=== PATIENT | male | born 1995 | race Caucasian/White ===

== ENCOUNTER 2017-08-01 12:42 | Inpatient (IN) | payer OTHER ==
[2017-08-01] MEDS ORDERED: NS 1,000 ML IV ONE ×2 (14:27)
--- NOTE | 2017-08-01 14:32 | EDPHY ---
H & P Stated Complaint: bilateral low back pain, sent by dr noble at [facility] Time Seen by Provider: 08/01/17 14:21 HPI/ROS: CHIEF COMPLAINT: Rhabdo HISTORY OF PRESENT ILLNESS: The patient is a 21-year-old man who comes to the emergency department referred by his primary Dr. Noble. The patient has been working out heavily lifting weights over the last couple of weeks he has also been using supplementation of creatine. He states that on Saturday he was nauseous and vomiting and complaining of low back pain. He began to feel better on Saturday but still had slight back pain on Saturday. He went to see his doctor who ordered lab work which was done yesterday. He was positive for hematuria on dip. He was sent for a noncontrast CT scan of his abdomen yesterday that was negative. Today his creatinine came back at 6 and he was referred to the emergency department. He states that overall he is feeling much better. The back pain is subsiding any is no longer nauseous or vomiting. No fever. No body aches. REVIEW OF SYSTEMS: Constitutional: denies: chills, fever, recent illness, recent injury EENTM: denies: blurred vision, double vision, nose congestion Respiratory: denies: cough, shortness of breath Cardiac: denies: chest pain, irregular heart rate, lightheadedness, palpitations Gastrointestinal/Abdominal: denies: abdominal pain, diarrhea, nausea, vomiting, blood streaked stools Genitourinary: denies: dysuria, frequency, hematuria, pain Musculoskeletal: See HPI Skin: denies: lesions, rash, jaundice, bruising Neurological: denies: headache, numbness, paresthesia, tingling, dizziness, weakness Hematologic/Lymphatic: denies: blood clots, easy bleeding, easy bruising Immunologic/allergic: denies: HIV/AIDS, transplant EXAM: GENERAL: Well-appearing, well-nourished and in no acute distress. HEAD: Atraumatic, normocephalic. EYES: Pupils equal round and reactive to light, extraocular movements intact, sclera anicteric, conjunctiva are normal. ENT: TMs normal, nares patent, oropharynx clear without exudates. Moist mucous membranes. NECK: Normal range of motion, supple without lymphadenopathy or JVD. LUNGS: Breath sounds clear to auscultation bilaterally and equal. No wheezes rales or rhonchi. HEART: Regular rate and rhythm without murmurs, rubs or gallops. ABDOMEN: Soft, nontender, normoactive bowel sounds. No guarding, no rebound. No masses appreciated. BACK: No CVA tenderness, no spinal tenderness, step-offs or deformities EXTREMITIES: Normal range of motion, no pitting or edema. No clubbing or cyanosis. NEUROLOGICAL: Cranial nerves II through XII grossly intact. Normal speech, normal gait. 5/5 strength, normal movement in all extremities, normal sensation PSYCH: Normal mood, normal affect. SKIN: Warm, dry, normal turgor, no visible rashes or lesions. Source: Patient Exam Limitations: No limitations - Personal History Current Tetanus Diphtheria and Acellular Pertussis (TDAP): Yes - Medical/Surgical History Hx Asthma: No Hx Chronic Respiratory Disease: No Hx Diabetes: No Hx Cardiac Disease: No Hx Renal Disease: No Hx Cirrhosis: No Hx Alcoholism: No Hx HIV/AIDS: No Hx Splenectomy or Spleen Trauma: No Other PMH: DENIES - Family History Significant Family History: No pertinent family hx - Social History Smoking Status: Never smoked Alcohol Use: Sober Drug Use: None Constitutional: Initial Vital Signs Temperature (C) 36.4 C 08/01/17 12:50 Heart Rate 74 08/01/17 12:50 Respiratory Rate 16 08/01/17 12:50 Blood Pressure 156/104 H 08/01/17 12:50 O2 Sat (%) 96 08/01/17 12:50 O2 Delivery Mode Room Air Allergies/Adverse Reactions: No Known Allergies Allergy (Unverified 09/19/15 14:55) Home Medications: Medication Instructions Recorded Herbals/Supplements -Info Only 1 ea PO DAILY 08/01/17 Ibuprofen [Advil] 400 mg PO BID PRN 08/01/17 Medical Decision Making ED Course/Re-evaluation: 3:00 p.m. I discussed the case Dr. Darion Vasquez who will admit to the medical service and continue hydration. CK pending. Patient is well appearing. He understands and agrees with this plan. Differential Diagnosis: Partial list of the Differential diagnosis considered include but were not limited to; analysis, renal insufficiency and although unlikely based on the history and physical exam, I also considered dehydration, gastritis, kidney stone, urinary tract infection. - Data Points Laboratory Results: Laboratory Results 08/01/17 14:20 08/01/17 14:20 08/01/17 08/01/17 08/01/17 14:20 14:20 14:20 WBC RBC Hgb Hct 43.7 % % (40.0-51.0) MCV MCH MCHC RDW Plt Count MPV Neut % (Auto) Lymph % (Auto) [place] % (Auto) Eos % (Auto) Baso % (Auto) Nucleat RBC Rel Count Absolute Neuts (auto) Absolute Lymphs (auto) Absolute Monos (auto) Absolute Eos (auto) Absolute Basos (auto) Absolute Nucleated RBC Immature Gran % Immature Gran # ESR Pending PT INR APTT Sodium Potassium Chloride Carbon Dioxide Anion Gap BUN Creatinine Estimated GFR Glucose Calcium Total Bilirubin Conjugated Bilirubin Unconjugated Bilirubin AST ALT Alkaline Phosphatase Creatine Kinase 44 IU/L IU/L (0-224) CK-MB (CK-2) Fraction Pending C-Reactive Protein Pending Total Protein Albumin PTH Intact Pending Urine Color Urine Appearance Urine pH Ur Specific [place] Urine Protein Urine Ketones Urine Blood Urine Nitrate Urine Bilirubin Urine Urobilinogen Ur Leukocyte Esterase Urine RBC Urine WBC Ur Epithelial Cells Urine Bacteria Urine Mucus Urine Glucose 08/01/17 08/01/17 08/01/17 14:20 14:20 14:20 WBC RBC Hgb Hct MCV MCH MCHC RDW Plt Count MPV Neut % (Auto) Lymph % (Auto) [place] % (Auto) Eos % (Auto) Baso % (Auto) Nucleat RBC Rel Count Absolute Neuts (auto) Absolute Lymphs (auto) Absolute Monos (auto) Absolute Eos (auto) Absolute Basos (auto) Absolute Nucleated RBC Immature Gran % Immature Gran # ESR PT 13.9 SEC SEC (12.0-15.0) INR 1.08 (0.83-1.16) APTT 30.3 SEC SEC (23.0-38.0) Sodium 139 mEq/L mEq/L (134-144) Potassium 3.9 mEq/L mEq/L (3.5-5.2) Chloride 98 mEq/L mEq/L (97-110) Carbon Dioxide 26 mEq/l mEq/l (22-31) Anion Gap 15 mEq/L mEq/L (8-16) BUN 32 mg/dL H mg/dL (7-23) Creatinine 5.7 mg/dL H mg/dL (0.7-1.3) Estimated GFR 13 Glucose 99 mg/dL mg/dL (70-100) Calcium 9.6 mg/dL mg/dL (8.5-10.4) Total Bilirubin 0.8 mg/dL mg/dL (0.1-1.4) Conjugated Bilirubin 0.3 mg/dL mg/dL (0.0-0.5) Unconjugated Bilirubin 0.5 mg/dL mg/dL (0.0-1.1) AST 23 IU/L IU/L (17-59) ALT 29 IU/L IU/L (21-72) Alkaline Phosphatase 78 IU/L IU/L (38-126) Creatine Kinase CK-MB (CK-2) Fraction C-Reactive Protein Total Protein 7.4 g/dL g/dL (6.3-8.2) Albumin 4.3 g/dL g/dL (3.5-5.0) PTH Intact Urine Color PALE YELLOW Urine Appearance CLEAR Urine pH 7.0 (5.0-7.5) Ur Specific [place] 1.005 (1.002-1.030) Urine Protein NEGATIVE (NEGATIVE) Urine Ketones NEGATIVE (NEGATIVE) Urine Blood NEGATIVE (NEGATIVE) Urine Nitrate NEGATIVE (NEGATIVE) Urine Bilirubin NEGATIVE (NEGATIVE) Urine Urobilinogen NEGATIVE EU EU (0.2-1.0) Ur Leukocyte Esterase 3+ H (NEGATIVE) Urine RBC NONE SEEN /hpf /hpf (0-3) Urine WBC 1-3 /hpf /hpf (0-3) Ur Epithelial Cells Not Reported Urine Bacteria TRACE /hpf H /hpf (NONE SEEN) Urine Mucus TRACE /lpf /lpf (NONE-1+) Urine Glucose NEGATIVE (NEGATIVE) 08/01/17 14:20 WBC 12.96 10^3/uL H 10^3/uL (3.80-9.50) RBC 4.88 10^6/uL 10^6/uL (4.40-6.38) Hgb 15.9 g/dL g/dL (13.7-17.5) Hct 43.3 % % (40.0-51.0) MCV 88.7 fL fL (81.5-99.8) MCH 32.6 pg pg (27.9-34.1) MCHC 36.7 g/dL g/dL (32.4-36.7) RDW 12.0 % % (11.5-15.2) Plt Count 279 10^3/uL 10^3/uL (150-400) MPV 10.2 fL fL (8.7-11.7) Neut % (Auto) 72.6 % % (39.3-74.2) Lymph % (Auto) 13.0 % L % (15.0-45.0) [place] % (Auto) 13.3 % H % (4.5-13.0) Eos % (Auto) 0.5 % L % (0.6-7.6) Baso % (Auto) 0.3 % % (0.3-1.7) Nucleat RBC Rel Count 0.0 % % (0.0-0.2) Absolute Neuts (auto) 9.41 10^3/uL H 10^3/uL (1.70-6.50) Absolute Lymphs (auto) 1.68 10^3/uL 10^3/uL (1.00-3.00) Absolute Monos (auto) 1.73 10^3/uL H 10^3/uL (0.30-0.80) Absolute Eos (auto) 0.06 10^3/uL 10^3/uL (0.03-0.40) Absolute Basos (auto) 0.04 10^3/uL 10^3/uL (0.02-0.10) Absolute Nucleated RBC 0.00 10^3/uL 10^3/uL (0-0.01) Immature Gran % 0.3 % % (0.0-1.1) Immature Gran # 0.04 10^3/uL 10^3/uL (0.00-0.10) ESR PT INR APTT Sodium Potassium Chloride Carbon Dioxide Anion Gap BUN Creatinine Estimated GFR Glucose Calcium Total Bilirubin Conjugated Bilirubin Unconjugated Bilirubin AST ALT Alkaline Phosphatase Creatine Kinase CK-MB (CK-2) Fraction C-Reactive Protein Total Protein Albumin PTH Intact Urine Color Urine Appearance Urine pH Ur Specific [place] Urine Protein Urine Ketones Urine Blood Urine Nitrate Urine Bilirubin Urine Urobilinogen Ur Leukocyte Esterase Urine RBC Urine WBC Ur Epithelial Cells Urine Bacteria Urine Mucus Urine Glucose Medications Given: Discontinued Medications Sodium Chloride (Ns) 1,000 mls @ 0 mls/hr IV EDNOW ONE; Wide Open PRN Reason: Protocol Stop: 08/01/17 14:28 Last Admin: 08/01/17 14:34 Dose: 1,000 mls Sodium Chloride (Ns) 1,000 mls @ 0 mls/hr IV EDNOW ONE; Wide Open PRN Reason: Protocol Stop: 08/01/17 14:28 Last Admin: 08/01/17 14:35 Dose: 1,000 mls Departure - Departure Disposition: [facility] Inpatient Acute Clinical Impression: Renal insufficiency Condition: Fair
[2017-08-01 14:34] LABS: PLATELET COUNT 279 10^3/uL (150-400)
[2017-08-01 14:43] LABS: INR 1.08 (0.83-1.16); PROTIME(PATIENT) 13.9 SEC (12.0-15.0)
[2017-08-01] MEDS ORDERED: ACETAMINOPHEN 325 MG TAB PO PRN (15:50)
[2017-08-01] MEDS ORDERED: ONDANSETRON DISINTEGRATING 4 MG TAB PO PRN (15:50)
[2017-08-01] MEDS ORDERED: ONDANSETRON 4 MG/2 ML VIAL IVP PRN (15:50)
--- NOTE | 2017-08-01 17:08 | GHP ---
[f rep st] HISTORY AND PHYSICAL DATE OF ADMISSION: 08/01/2017 HISTORY OF PRESENT ILLNESS: This is a 21-year-old gentleman with no past medical history, who presen ts with a couple of days of back pain, nausea and vomiting. 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 He notes increased work load of weightlifting. He does take steroids o r use performance enhancing drugs. Four days prior to admission, he developed some back pain, nausea, vomiting, with clear, foamy urine. He has been eating okay and vomited for a couple of days. He denies overall muscle tenderness. He has no rash on the skin. No swollen joints. No sores in his mouth. No family history of kidney fa ilure. He takes minimal to no NSAIDs. He denies fever, chills, nausea, vomiting, diarrhea. He does not use recreational drugs. REVIEW OF SYSTEMS: Complete 10-point Review of Systems conducted and negative except as noted in the HPI. PAST MEDICAL HISTORY: None. ALLERGIES: None. HOME MEDICATIONS: None. SOCIAL HISTORY: He is a student at [employer], originally from [place], lives in [place]. FAMILY HISTORY: Reviewed and unremarkable. PHYSICAL EXAMINATION: VITAL SIGNS: Temp 36.4, blood pressure 156/104, pulse 94, breathing 16 times a minute, 96% on room air. GENERAL: No acute distress. HEENT: Sclerae anicteric. Oropharynx bassem r. Mucous membranes moist. NECK: Supple. Without lymphadenopathy or JVD. LUNGS: Clear to auscul tation bilaterally. HEART: S1 and S2. ABDOMEN: Soft, nontender, nondistended. LOWER EXTREMITIES: No edema. Calves nontender. SKIN: Without rash. NEUROLOGIC EXAM: Nonfocal. LABS: His white count 12.3, with a left shift. No eosinophils. Hematocrit is 43, platelets are 279 ,000, coags normal. Sodium 139, potassium 3.9, chloride 98, bicarb 26, BUN 32, creatinine 5.7. LFTs normal. CK is 44. Urinalysis shows 3+ leukocyte esterase, trace bacteria, they comment negative protein here, specific gravity is 1.005. Labs performed yesterday showed BUN and creatinine of 33 and 6.2. At that point, his potassium was 4 .2, elevated CRP. He had a CT of his abdomen without contrast that showed right and left kidneys that are unremarkable without hydronephrosis or hydroureter. There was no calculus. The rest of it was unremarkable. Yesterday his UA at that point, showed large protein, and is negative here. I discussed the case with the Naphthol Soaping Machine Operator long wall shear operator, as well as Dr. Willis. ASSESSMENT/PLAN: A 21-year-old gentleman with acute kidney injury. 1. Acute kidney injury. Differential includes rhabdomyolysis, given his very normal CK. Additional ly, creatine supplement can cause some kidney injury, but this is awfully high. Therefore, the full workup is indicated. I have ordered ultrasound, urine electrolytes, urine microalbumin, urine protei n and urine microscopy. He does not have an elevated potassium. 2. Prophylaxis, low risk, ambulation. 3. Leukocytosis of uncertain etiology. Reactive. 4. Hypertension. This is probably due to his kidney failure. We will start him on some hydralazine today orally. 5. Kidney failure addendum: The patient meets the criteria, probably of nephritic syndrome with wha t I anticipate will be active sediment, hypertension and kidney injury. There does not appear to be rheumatologic cause behind this. DISPOSITION: Inpatient status. The patient has organ failure requiring greater than a 2-midnight st ay. /[id number]/MODL
--- NOTE | 2017-08-01 17:08 | GHP ---
[f rep st] HISTORY AND PHYSICAL DATE OF ADMISSION: 08/01/2017 HISTORY OF PRESENT ILLNESS: This is a 21-year-old gentleman with no past medical history, who presen ts with a couple of days of back pain, nausea and vomiting. 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 He notes increased work load of weightlifting. He does take steroids o r use performance enhancing drugs. Four days prior to admission, he developed some back pain, nausea, vomiting, with clear, foamy urine. He has been eating okay and vomited for a couple of days. He denies overall muscle tenderness. He has no rash on the skin. No swollen joints. No sores in his mouth. No family history of kidney fa ilure. He takes minimal to no NSAIDs. He denies fever, chills, nausea, vomiting, diarrhea. He does not use recreational drugs. REVIEW OF SYSTEMS: Complete 10-point Review of Systems conducted and negative except as noted in the HPI. PAST MEDICAL HISTORY: None. ALLERGIES: None. HOME MEDICATIONS: None. SOCIAL HISTORY: He is a student at [employer], originally from [place], lives in [place]. FAMILY HISTORY: Reviewed and unremarkable. PHYSICAL EXAMINATION: VITAL SIGNS: Temp 36.4, blood pressure 156/104, pulse 94, breathing 16 times a minute, 96% on room air. GENERAL: No acute distress. HEENT: Sclerae anicteric. Oropharynx bassem r. Mucous membranes moist. NECK: Supple. Without lymphadenopathy or JVD. LUNGS: Clear to auscul tation bilaterally. HEART: S1 and S2. ABDOMEN: Soft, nontender, nondistended. LOWER EXTREMITIES: No edema. Calves nontender. SKIN: Without rash. NEUROLOGIC EXAM: Nonfocal. LABS: His white count 12.3, with a left shift. No eosinophils. Hematocrit is 43, platelets are 279 ,000, coags normal. Sodium 139, potassium 3.9, chloride 98, bicarb 26, BUN 32, creatinine 5.7. LFTs normal. CK is 44. Urinalysis shows 3+ leukocyte esterase, trace bacteria, they comment negative protein here, specific gravity is 1.005. Labs performed yesterday showed BUN and creatinine of 33 and 6.2. At that point, his potassium was 4 .2, elevated CRP. He had a CT of his abdomen without contrast that showed right and left kidneys that are unremarkable without hydronephrosis or hydroureter. There was no calculus. The rest of it was unremarkable. Yesterday his UA at that point, showed large protein, and is negative here. I discussed the case with the Necktie Stitcher public relations writer, as well as Dr. Willis. ASSESSMENT/PLAN: A 21-year-old gentleman with acute kidney injury. 1. Acute kidney injury. Differential includes rhabdomyolysis, given his very normal CK. Additional ly, creatine supplement can cause some kidney injury, but this is awfully high. Therefore, the full workup is indicated. I have ordered ultrasound, urine electrolytes, urine microalbumin, urine protei n and urine microscopy. He does not have an elevated potassium. 2. Prophylaxis, low risk, ambulation. 3. Leukocytosis of uncertain etiology. Reactive. 4. Hypertension. This is probably due to his kidney failure. We will start him on some hydralazine today orally. 5. Kidney failure addendum: The patient meets the criteria, probably of nephritic syndrome with wha t I anticipate will be active sediment, hypertension and kidney injury. There does not appear to be rheumatologic cause behind this. DISPOSITION: Inpatient status. The patient has organ failure requiring greater than a 2-midnight st ay. /[id number]/MODL
--- NOTE | 2017-08-01 17:08 | GHP ---
[f rep st] HISTORY AND PHYSICAL DATE OF ADMISSION: 08/01/2017 HISTORY OF PRESENT ILLNESS: This is a 21-year-old gentleman with no past medical history, who presen ts with a couple of days of back pain, nausea and vomiting. 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 He notes increased work load of weightlifting. He does take steroids o r use performance enhancing drugs. Four days prior to admission, he developed some back pain, nausea, vomiting, with clear, foamy urine. He has been eating okay and vomited for a couple of days. He denies overall muscle tenderness. He has no rash on the skin. No swollen joints. No sores in his mouth. No family history of kidney fa ilure. He takes minimal to no NSAIDs. He denies fever, chills, nausea, vomiting, diarrhea. He does not use recreational drugs. REVIEW OF SYSTEMS: Complete 10-point Review of Systems conducted and negative except as noted in the HPI. PAST MEDICAL HISTORY: None. ALLERGIES: None. HOME MEDICATIONS: None. SOCIAL HISTORY: He is a student at [employer], originally from [place], lives in [place]. FAMILY HISTORY: Reviewed and unremarkable. PHYSICAL EXAMINATION: VITAL SIGNS: Temp 36.4, blood pressure 156/104, pulse 94, breathing 16 times a minute, 96% on room air. GENERAL: No acute distress. HEENT: Sclerae anicteric. Oropharynx bassem r. Mucous membranes moist. NECK: Supple. Without lymphadenopathy or JVD. LUNGS: Clear to auscul tation bilaterally. HEART: S1 and S2. ABDOMEN: Soft, nontender, nondistended. LOWER EXTREMITIES: No edema. Calves nontender. SKIN: Without rash. NEUROLOGIC EXAM: Nonfocal. LABS: His white count 12.3, with a left shift. No eosinophils. Hematocrit is 43, platelets are 279 ,000, coags normal. Sodium 139, potassium 3.9, chloride 98, bicarb 26, BUN 32, creatinine 5.7. LFTs normal. CK is 44. Urinalysis shows 3+ leukocyte esterase, trace bacteria, they comment negative protein here, specific gravity is 1.005. Labs performed yesterday showed BUN and creatinine of 33 and 6.2. At that point, his potassium was 4 .2, elevated CRP. He had a CT of his abdomen without contrast that showed right and left kidneys that are unremarkable without hydronephrosis or hydroureter. There was no calculus. The rest of it was unremarkable. Yesterday his UA at that point, showed large protein, and is negative here. I discussed the case with the Clinical Dietician office communication professor, as well as Dr. Willis. ASSESSMENT/PLAN: A 21-year-old gentleman with acute kidney injury. 1. Acute kidney injury. Differential includes rhabdomyolysis, given his very normal CK. Additional ly, creatine supplement can cause some kidney injury, but this is awfully high. Therefore, the full workup is indicated. I have ordered ultrasound, urine electrolytes, urine microalbumin, urine protei n and urine microscopy. He does not have an elevated potassium. 2. Prophylaxis, low risk, ambulation. 3. Leukocytosis of uncertain etiology. Reactive. 4. Hypertension. This is probably due to his kidney failure. We will start him on some hydralazine today orally. 5. Kidney failure addendum: The patient meets the criteria, probably of nephritic syndrome with wha t I anticipate will be active sediment, hypertension and kidney injury. There does not appear to be rheumatologic cause behind this. DISPOSITION: Inpatient status. The patient has organ failure requiring greater than a 2-midnight st ay. /[id number]/MODL
--- NOTE | 2017-08-01 20:22 | PDCONSULT ---
Emergency Telecommunications Dispatcher Note: CHIEF COMPLAINT: Low back pain HPI: The patient is a 21 y/o healthy male who presents from his PCP for low back pain and an elevated creatinine of 5.7mg/dL. The patient states that he woke up Saturday morning with nausea and vomiting x 3 then stayed in bed for the day. This recurred on Saturday and Saturday, so he went to a physician and had labs and a CT done. He admits to partying on Saturday night, with alcohol use only. He also lifts weights 5 days per week and takes a "preworkout" shake with creatine supplement, however, of an unknown amount. He has no h/o nephrolithiasis, kidney problems, and thinks he may have had one urinary tract infection in [facility]. He does not frequently use NSAIDs. He does not use IV drugs. He recalls being sick with a sore throat nearly one month ago. No rashes , joint pains, hematuria, or issues with urination. He does think his urine looked "foamy" this week. In addition, his previous UA reportedly had microscopic hematuria. Prior to this week, he has felt fine with no fatigue, weight loss, fevers, night sweats or other ROS. His only hospitalization in his life was for Lumiere's syndrome in high school requiring surgery. REVIEW OF SYSTEMS: Negative 10 point ROS except as above. Meds: No medications NKDA - Medical/Surgical History Hx Asthma: No Hx Chronic Respiratory Disease: No Hx Diabetes: No Hx Cardiac Disease: No Hx Renal Disease: No Hx Cirrhosis: No Hx Alcoholism: No Hx HIV/AIDS: No Hx Splenectomy or Spleen Trauma: No Other PMH: DENIES - Family History Significant Family History: No pertinent family hx of renal disease - Social History Smoking Status: Never smoked Alcohol Use: Sober Drug Use: Admits to using MDMA in the past, no IV drug use. Objective: Temp Pulse Resp BP Pulse Ox 36.9 C 62 16 157/80 H 97 08/01/17 19:26 08/01/17 19:26 08/01/17 19:26 08/01/17 19:26 08/01/17 19:26 EXAM: GENERAL: Well-appearing, well-nourished and in no acute distress. HEAD: Atraumatic, normocephalic. EYES: Pupils equal round and reactive to light, extraocular movements intact, sclera anicteric, conjunctiva are normal. ENT: TMs normal, nares patent, oropharynx clear without exudates. Moist mucous membranes. NECK: Normal range of motion, supple without lymphadenopathy or JVD. LUNGS: Breath sounds clear to auscultation bilaterally and equal. No wheezes rales or rhonchi. HEART: Regular rate and rhythm without murmurs, rubs or gallops. ABDOMEN: Soft, nontender, normoactive bowel sounds. No guarding, no rebound. No masses appreciated. BACK: No CVA tenderness, no spinal tenderness, step-offs or deformities EXTREMITIES: Normal range of motion, no pitting or edema. No clubbing or cyanosis. NEUROLOGICAL: Non focal PSYCH: Normal mood, normal affect. SKIN: Warm, dry, normal turgor, no visible rashes or lesions. Labs: WBC 12.96 10^3/uL (3.80-9.50) H 08/01/17 14:20 RBC 4.88 10^6/uL (4.40-6.38) 08/01/17 14:20 Hgb 15.9 g/dL (13.7-17.5) 08/01/17 14:20 Hct 43.7 % (40.0-51.0) 08/01/17 14:20 MCV 88.7 fL (81.5-99.8) 08/01/17 14:20 MCH 32.6 pg (27.9-34.1) 08/01/17 14:20 MCHC 36.7 g/dL (32.4-36.7) 08/01/17 14:20 RDW 12.0 % (11.5-15.2) 08/01/17 14:20 Plt Count 279 10^3/uL (150-400) 08/01/17 14:20 MPV 10.2 fL (8.7-11.7) 08/01/17 14:20 Neut % (Auto) 72.6 % (39.3-74.2) 08/01/17 14:20 Lymph % (Auto) 13.0 % (15.0-45.0) L 08/01/17 14:20 [place] % (Auto) 13.3 % (4.5-13.0) H 08/01/17 14:20 Eos % (Auto) 0.5 % (0.6-7.6) L 08/01/17 14:20 Baso % (Auto) 0.3 % (0.3-1.7) 08/01/17 14:20 Nucleat RBC Rel Count 0.0 % (0.0-0.2) 08/01/17 14:20 Absolute Neuts (auto) 9.41 10^3/uL (1.70-6.50) H 08/01/17 14:20 Absolute Lymphs (auto) 1.68 10^3/uL (1.00-3.00) 08/01/17 14:20 Absolute Monos (auto) 1.73 10^3/uL (0.30-0.80) H 08/01/17 14:20 Absolute Eos (auto) 0.06 10^3/uL (0.03-0.40) 08/01/17 14:20 Absolute Basos (auto) 0.04 10^3/uL (0.02-0.10) 08/01/17 14:20 Absolute Nucleated RBC 0.00 10^3/uL (0-0.01) 08/01/17 14:20 Immature Gran % 0.3 % (0.0-1.1) 08/01/17 14:20 Immature Gran # 0.04 10^3/uL (0.00-0.10) 08/01/17 14:20 ESR 21 MM/HR (0-15) H 08/01/17 14:20 PT 13.9 SEC (12.0-15.0) 08/01/17 14:20 INR 1.08 (0.83-1.16) 08/01/17 14:20 APTT 30.3 SEC (23.0-38.0) 08/01/17 14:20 Sodium 139 mEq/L (134-144) 08/01/17 14:20 Potassium 3.9 mEq/L (3.5-5.2) 08/01/17 14:20 Chloride 98 mEq/L (97-110) 08/01/17 14:20 Carbon Dioxide 26 mEq/l (22-31) 08/01/17 14:20 Anion Gap 15 mEq/L (8-16) 08/01/17 14:20 BUN 32 mg/dL (7-23) H 08/01/17 14:20 Creatinine 5.7 mg/dL (0.7-1.3) H 08/01/17 14:20 Estimated GFR 13 08/01/17 14:20 Glucose 99 mg/dL (70-100) 08/01/17 14:20 Calcium 9.6 mg/dL (8.5-10.4) 08/01/17 14:20 Total Bilirubin 0.8 mg/dL (0.1-1.4) 08/01/17 14:20 Conjugated Bilirubin 0.3 mg/dL (0.0-0.5) 08/01/17 14:20 Unconjugated Bilirubin 0.5 mg/dL (0.0-1.1) 08/01/17 14:20 AST 23 IU/L (17-59) 08/01/17 14:20 ALT 29 IU/L (21-72) 08/01/17 14:20 Alkaline Phosphatase 78 IU/L (38-126) 08/01/17 14:20 Creatine Kinase 44 IU/L (0-224) 08/01/17 14:20 CK-MB (CK-2) Fraction 0.33 ng/mL (0.00-3.19) 08/01/17 14:20 C-Reactive Protein 15.6 mg/L (<10.0) H 08/01/17 14:20 Total Protein 7.4 g/dL (6.3-8.2) 08/01/17 14:20 Albumin 4.3 g/dL (3.5-5.0) 08/01/17 14:20 PTH Intact 79.3 pg/ml (10.8-79.4) 08/01/17 14:20 Urine Color PALE YELLOW 08/01/17 14:20 Urine Appearance CLEAR 08/01/17 14:20 Urine pH 7.0 (5.0-7.5) 08/01/17 14:20 Ur Specific [place] 1.005 (1.002-1.030) 08/01/17 14:20 Urine Protein NEGATIVE (NEGATIVE) 08/01/17 14:20 Urine Ketones NEGATIVE (NEGATIVE) 08/01/17 14:20 Urine Blood NEGATIVE (NEGATIVE) 08/01/17 14:20 Urine Nitrate NEGATIVE (NEGATIVE) 08/01/17 14:20 Urine Bilirubin NEGATIVE (NEGATIVE) 08/01/17 14:20 Urine Urobilinogen NEGATIVE EU (0.2-1.0) 08/01/17 14:20 Ur Leukocyte Esterase 3+ (NEGATIVE) H 08/01/17 14:20 Urine RBC 1-3 /hpf (0-3) 08/01/17 16:20 Urine WBC 1-3 /hpf (0-3) 08/01/17 16:20 Ur Epithelial Cells NONE SEEN /lpf (NONE-1+) 08/01/17 16:20 Urine Bacteria TRACE /hpf (NONE SEEN) H 08/01/17 14:20 Urine Mucus TRACE /lpf (NONE-1+) 08/01/17 14:20 Ur Random Creatinine 50.2 mg/dL 08/01/17 16:20 Ur Random Microalbumin 29.0 mg/dL (0.0-1.6) H 08/01/17 16:20 Ur Random Sodium 37 mEq/L (30-90) 08/01/17 16:20 Ur Albumin/Creat Ratio 577.6 mg/g cre 08/01/17 16:20 Urine Glucose NEGATIVE (NEGATIVE) 08/01/17 14:20 Imaging: Pending, CT results not available to review. Assessment/Plan: The patient is a 21 y/o M with no PMH who presents with renal failure, hypertension and a normal physical exam. Etiology unclear and if this was an acute episode (such as ATN, AIN, etc) there would more likely be other electrolyte abnormalities and evidence on urine microscopy. 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 However, one would expect more of an acidosis or anemia associated with CKD. Interesting, the patient has 500mg of proteinuria and no hematuria on UA tonight. In addition , he has a leukocytosis with an abnormal differential which may indicate an underlying malignancy. It was discussed that a creatine supplement could possibly cause these lab abnormalities, and while this finding has been reported with use of >20g/day for five days, it is unlikely to cause this degree of elevation in creatinine and would not be expected to be associated with clinical symptoms of uremia. Other differential includes SLE nephritis, PSGN, IgA, or vasculitis given some drug history. -will send serologies for GN -send urine culture -await renal US results -keep NPO and hold anticoagulation for possible biopsy tomorrow -continue fluids and monitor BMP -consider hematology consult and peripheral smear to r/o lymphoma -control BP with amlodipine or hydralazine (currently >160 systolic and goal < 130 for biopsy) Consult appreciated, please contact if further ?'s.
[2017-08-01] MEDS: hydrALAZINE 10 MG TAB PO SCH (21:55)
[2017-08-02 03:37] LABS: HEPATITIS B SURFACE ANTIGEN NEGATIVE (NEGATIVE)
[2017-08-02 03:43] LABS: HEPATITIS A ANTIBODY IGM (BCH) NEGATIVE (NEGATIVE); HEPATITIS B CORE AB IGM NEGATIVE (NEGATIVE)
[2017-08-02 03:55] LABS: HEPATITIS C ANTIBODY TOTAL NEGATIVE (NEGATIVE)
[2017-08-02] MEDS: NS 1,000 ML IV SCH ×3 (04:43→19:28)
[2017-08-02 04:52] LABS: PLATELET COUNT 234 10^3/uL (150-400)
[2017-08-02 05:16] LABS: INR 1.1 (0.83-1.16); PROTIME(PATIENT) 14.1 SEC (12.0-15.0)
--- NOTE | 2017-08-02 08:02 | SOAPPROG ---
SOAP Progress Note Assessment/Plan: Assessment/Plan: The patient is a 21 y/o M with no PMH who presents with renal failure, hypertension. Unclear etiology, however Cr trending down to 4.1mg/dL today and elevated ASO titer with clinical history of illness over 2 weeks ago possibly consistent with PSGN maybe with superimposed pre-renal insult from N/V this past week. Renal US shows mildly enlarged "swollen kidneys" with no hydronephrosis. Will plan for conservative management for now. -await serologies for GN -await urine, repeat UA, send urine sodium -patient may eat, renal diet -continue fluids and monitor BMP -monitor CBC, leukocytosis improving -control BP with amlodipine or hydralazine Consult appreciated, please contact if further ?'s. 08/02/17 08:02 Subjective: Patient feeling ok this AM. No events overnight. Brother coming to visit. Negative ROS. Objective: Vital Signs Temp Pulse Resp BP Pulse Ox 37.1 C 51 L 16 154/87 H 99 08/02/17 07:24 08/02/17 07:24 08/02/17 07:24 08/02/17 07:24 08/02/17 07:24 Laboratory Results 08/02/17 04:29 08/02/17 04:29 08/01/17 08/02/17 08/03/17 05:59 05:59 05:59 Intake Total 2300 Output Total 500 Balance 1800 PT 14.1 SEC (12.0-15.0) 08/02/17 04:29 INR 1.10 (0.83-1.16) 08/02/17 04:29 Physical Exam - Physical Exam General Appearance: WD/WN, alert, no apparent distress EENT: PERRL/EOMI, pharynx normal Neck: non-tender, full range of motion, supple Respiratory: lungs clear Cardiac/Chest: normal peripheral pulses, regular rate, rhythm Abdomen: normal bowel sounds, non-tender, soft Back: Normal inspection Skin: normal color, warm/dry Lymphatic: no adenopathy Neuro/Psych: no motor/sensory deficits, alert, oriented x 3 ICD10 Worksheet Patient Problems: Problems Problem Status Onset Renal insufficiency Acute Neck abscess Acute Sepsis Acute
--- NOTE | 2017-08-02 08:42 | PDMN ---
Medical Necessity Medical necessity: Patient meets INPT criteria per physician note and [facility] Renal Failure, Acute - 3 days - (labs yest: Creat 6.2/BUN 33, now 5.7/32 w/ leukocytosis; hx of several days of N/V and low back pain; takes creatine supplement; anticipated LOS > 2 midnights for nephrology consult/workup, IV hydration, start on hydralazine.)
--- NOTE | 2017-08-02 08:42 | PDMN ---
Medical Necessity Medical necessity: Patient meets IN[place] criteria [place] physician note and [facility] [place] Renal Failure, Acute - 3 days - (labs yest: Creat 6.2/BUN 33, now 5.7/32 w/ leukocytosis; hx of several days of N/V and low back pain; takes creatine supplement; anticipated LOS > 2 midnights for nephrology consult/workup, IV hydration, start on hydralazine.)
--- NOTE | 2017-08-02 08:42 | PDMN ---
Medical Necessity Medical necessity: Patient meets INPT criteria per physician note and [facility] [place] M-326 Renal Failure, Acute - 3 days - (labs yest: Creat 6.2/BUN 33, now 5.7/32 w/ leukocytosis; hx of several days of N/V and low back pain; takes creatine supplement; anticipated LOS > 2 midnights for nephrology consult/workup, IV hydration, start on hydralazine.)
[2017-08-02] MEDS: hydrALAZINE 10 MG TAB PO SCH ×3 (09:20→21:38)
--- NOTE | 2017-08-02 09:53 | HOSPPROG ---
Hospitalist Progress Note Assessment/Plan: ANA MARIA with nephritic syndrome (htn, microalbuminuria, ANA MARIA, though no hematuria) - ASO titer elevated, suspect PSGN given recent sore throat illness. -await GN serologies -cont supportive care, IVF's -f/u urine studies -appreciate nephrology assistance Hypertension - Suboptimal control -cont hydralazine, add amlodipine Leukocytosis - likely stress response, trending down. Cont to observe off atbx. Full code Dispo - cont inpt Subjective: Pt feels well today. He reports cough and sore throat 2 weeks ago, then 5 days [employer] developed back pain, N/V. Hasn't vomited for 4 days, but stomach and back pain persisted. Today, his symptoms are nearly completely resolved. No fevers. No N/V overnight. Good uop. Objective: Vital Signs Temp Pulse Resp BP Pulse Ox 37.1 C 51 L 16 147/84 H 99 08/02/17 07:24 08/02/17 07:24 08/02/17 07:24 08/02/17 09:20 08/02/17 07:24 Laboratory Results 08/02/17 04:29 08/02/17 04:29 08/01/17 08/02/17 08/03/17 05:59 05:59 05:59 Intake Total 300 Output Total 500 Balance -200 PT 14.1 SEC (12.0-15.0) 08/02/17 04:29 INR 1.10 (0.83-1.16) 08/02/17 04:29 - Physical Exam Constitutional: no apparent distress Eyes: PERRL Ears, Nose, Mouth, Throat: moist mucous membranes Cardiovascular: regular rate and rhythym, no murmur, rub, or gallop Respiratory: no respiratory distress, clear to auscultation Gastrointestinal: normoactive bowel sounds, soft, non-tender abdomen Skin: warm Musculoskeletal: full muscle strength Neurologic: AAOx3 Psychiatric: interacting appropriately ICD10 Worksheet Patient Problems: Problems Problem Status Onset Renal insufficiency Acute Neck abscess Acute Sepsis Acute
--- NOTE | 2017-08-02 12:46 | ASMTCMCOM ---
CM Note CM Note Notes: Reviewed chart and discussed w/RN. 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 Anticipate dc home independantly when medically stable. Date Signed: 08/02/2017 12:45 PM Electronically Signed By:Izabel Olvera RN
[2017-08-03 07:31] VITALS: BP 149/74; PULSE 57; RESP 12; TEMP 98.4; O2SAT 97
[2017-08-03] MEDS: hydrALAZINE 10 MG TAB PO SCH (08:39)
--- NOTE | 2017-08-03 09:26 | GDS ---
[f rep st] DISCHARGE SUMMARY DISCHARGE DIAGNOSES: 1. 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 2. Elevated blood pressure in the setting of nephritic syndrome. 3. Leukocytosis, resolved. CONSULTANTS: Dr. Josh Lemos, nephrology. IMAGING STUDIES AND PROCEDURES: Renal ultrasound August 01, 2017, showed features consistent with m edical renal disease. No hydronephrosis. HISTORY: For details, please see the history and physical dated August 01, 2017. 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 He was found to have acute kidney injury with a creatinine of 5.7, normal electrolytes, and was admitted to the hospital for further management. HOSPITAL COURSE: The patient was admitted to the medical-surgical unit. He was given aggressive IV fluids to flush his kidneys. He had normal electrolytes, did not require dialysis. His creatinine t rended down to 2.8. He has had excellent urine output. His ASO titer was significantly elevated, crandall ggestive of a post streptococcal glomerulonephritis. He also had features of nephritic syndrome with hypertension, microalbuminuria, and acute kidney injury; however, there was no hematuria or signific ant sediment in his urine. I discussed the case with Nephrology on the day of discharge. We believe the patient is stable to discharge home with close outpatient followup. He did require low-dose hyd ralazine during the hospitalization for elevated blood pressures in the setting of acute kidney injur y. I will continue this at discharge for a 10-day prescription. [facility] a basic [facility] panel and also recheck his blood pressure. He may be able to discontinue the hydralazine at some point in the near future. DISPOSITION: Patient is discharged home in stable condition. DISCHARGE MEDICATIONS: Please see [employer] for completed outpatient medication list. New medication s on discharge include hydralazine 25 mg p.o. three times daily, #30, no refills. He is instructed t o discontinue his ibuprofen. FOLLOWUP: Dr. Josh Lemos, [place] [facility] in 3-5 days for repeat basic metabolic panel an d recheck of his blood pressure. /[id number]/MODL
--- NOTE | 2017-08-03 11:12 | ASDISCHSUM ---
Discharge Information Plan Status:Home with No Needs Medically Cleared to Leave: Discharge Date:08/03/2017 10:33 AM CM D/C Disposition:Home, Routine, Self-Care ADT D/C Disposition:Home, Routine, Self-Care Projected Discharge Date:08/03/2017 10:33 AM Transportation at D/C: Discharge Delay Reason: Follow-Up Date:08/03/2017 10:33 AM Discharge Slot: Final Diagnosis: Placement Information Patient Contact Information Contact Name:CHARLES Relationship:Mother Address:[address] City:[place] Alternate Phone: [facility] Code:[place] [address] Email: Financial Information Financial Class:HMO and PPO Plans Primary Plan Desc:[employer] PPO POS HMO SIG ADM Primary Plan Number:[id number] Secondary Plan Desc: Secondary Plan Number: Assessment Information [facility] CM Progress Note CM Note CM Note Notes: Reviewed chart and discussed w/RN. 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 Anticipate dc home independantly when medically stable. Date Signed: 08/02/2017 12:45 PM Electronically Signed By:Izabel Olvera RN Intervention Information Intervention Type:*Incorrect Registration Date of Service:08/01/2017 08:51 AM Patient Type:Inpatient Staff Member:JESUS Tristan, Rosa Hours: Discipline: Severity: Comment:
--- NOTE | 2017-08-03 11:12 | ASDISCHSUM ---
Discharge Information Plan Status:Home with No Needs Medically Cleared to Leave: Discharge Date:08/03/2017 10:33 AM CM D/C Disposition:Home, Routine, Self-Care ADT D/C Disposition:Home, Routine, Self-Care Projected Discharge Date:08/03/2017 10:33 AM Transportation at D/C: Discharge Delay Reason: Follow-Up Date:08/03/2017 10:33 AM Discharge Slot: Final Diagnosis: Placement Information Patient Contact Information Contact Name:CHARLES Relationship:Mother Address:[address] City:[place] Alternate Phone: [facility] Code:[place] [address] Email: Financial Information Financial Class:HMO and PPO Plans Primary Plan Desc:[employer] PPO POS HMO SIG ADM Primary Plan Number:[id number] Secondary Plan Desc: Secondary Plan Number: Assessment Information [facility] CM Progress Note CM Note CM Note Notes: Reviewed chart and discussed w/RN. 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 Anticipate dc home independantly when medically stable. Date Signed: 08/02/2017 12:45 PM Electronically Signed By:Izabel Olvera RN Intervention Information Intervention Type:*Incorrect Registration Date of Service:08/01/2017 08:51 AM Patient Type:Inpatient Staff Member:JESUS Tristan, Rosa Hours: Discipline: Severity: Comment:
--- NOTE | 2017-08-03 11:12 | ASDISCHSUM ---
Discharge Information Plan Status:Home with No Needs Medically Cleared to Leave: Discharge Date:08/03/2017 10:33 AM CM D/C Disposition:Home, Routine, Self-Care ADT D/C Disposition:Home, Routine, Self-Care Projected Discharge Date:08/03/2017 10:33 AM Transportation at D/C: Discharge Delay Reason: Follow-Up Date:08/03/2017 10:33 AM Discharge Slot: Final Diagnosis: Placement Information Patient Contact Information Contact Name:CHARLES Relationship:Mother Address:[address] City:[place] Alternate Phone: [facility] Code:[place] [address] Email: Financial Information Financial Class:HMO and PPO Plans Primary Plan Desc:[employer] PPO POS HMO SIG ADM Primary Plan Number:[id number] Secondary Plan Desc: Secondary Plan Number: Assessment Information [facility] CM Progress Note CM Note CM Note Notes: Reviewed chart and discussed w/RN. 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 Anticipate dc home independantly when medically stable. Date Signed: 08/02/2017 12:45 PM Electronically Signed By:Izabel Olvera RN Intervention Information Intervention Type:*Incorrect Registration Date of Service:08/01/2017 08:51 AM Patient Type:Inpatient Staff Member:JESUS Tristan, Rosa Hours: Discipline: Severity: Comment:
== END 2017-08-03 10:33 | disposition home or self-care (01) | DRG 700 ==
LOC: OBSVTOIN 15:54 → F3E 15:56
PROVIDERS: ADMIT Internal Medicine; ATTEND Hospitalist
CPT/HCPCS: 83516-90; 83520-90; G0472